=== PATIENT | female | born 1955 | race Caucasian/White ===

== ENCOUNTER → 2016-09-30 | Outpatient (CLI) | payer BC | END | disposition home or self-care (01) | LOC: C.PAPS 12:08 | PROVIDERS: ATTEND Obstetrics & Gynecology | DX: Z01.419 Encounter for gynecological examination (general) (routine) without abnormal findings (principal) ==

== ENCOUNTER → 2017-10-27 | Outpatient (CLI) | payer OTHER ==
--- NOTE | 2017-10-27 15:12 | MAMMOGRAPHY REPORT ---
BILATERAL DIGITAL DIAGNOSTIC MAMMOGRAM TOMOSYNTHESIS WITH CAD AND TARGETED LEFT ULTRASOUND: 10/27/2017 CLINICAL HISTORY: 62-year-old woman presents after her physician felt a lump in the 1:00 left breast on recent physical exam. Patient reports she is unable to feel the lump herself. No skin erythema, thickening or nipple discharge. No family history of breast cancer. Baseline examination. TECHNIQUE: Bilateral breast tomosynthesis in addition to standard 2D mammography was performed. Curre nt study was also evaluated with a Computer Aided Detection (CAD) system. COMPARISON: No prior exams were available for comparison. BREAST COMPOSITION: The tissue of both breasts is heterogeneously dense, which may obscure small mas ses. FINDINGS: A triangle or palpable marker was placed on the 12:00 to 1:00 anterior left breast, denotin g the palpable lump pointed out by the patient, identified by her provider. There is subtle global a symmetry of the breasts, with the left glandular tissue slightly denser when comparing to the right. Although this could represent the patient's baseline or be secondary to technique, further evaluatio n with ultrasound was performed throughout the left breast. No focal area of architectural distortio n, suspicious calcifications or obvious mass is identified bilaterally. Targeted ultrasound was performed throughout the left breast with particular attention to the 12:00 a nd 1:00 axes in the area of palpable concern pointed out by the patient. Throughout the left breast, sonographically normal tissue is seen without a suspicious solid or cystic mass. IMPRESSION: ACR-BI-RADS CATEGORY 3: PROBABLY BENIGN, TARGETED ULTRASOUND ACR-BI-RADS CATEGORY 3: PRO BABLY BENIGN 1. There is no suspicious mammographic or targeted sonographic abnormality in the 12:00 to 1:00 left breast, 3 cm from the nipple, in the area of palpable lump identified by the patient's provider. Th erefore, clinical follow-up is recommended, as biopsy of a clinically suspicious mass should not be p recluded by negative imaging. 2. There is subtle global asymmetry of the left breast comparing to the right, which may simply repr esent the patient's granular pattern, as this is her baseline mammogram, or could be technical. No s onographic abnormality identified. Nevertheless, a short interval follow-up bilateral diagnostic la osynthesis mammogram and possible repeat ultrasound is recommended to ensure stability in 6 months. The right breast should also be imaged for comparison purposes. These results and recommendations were discussed with the patient at the time of the exam. She tenta tively scheduled a follow-up appointment prior to leaving the department. Approximately 10% of breast cancers are not detected with mammography. A negative mammographic report should not delay biopsy if a clinically suggestive mass is present. Frida Selby M.D. ay/:10/27/2017 12:27:38 Billet Header: Tonie METCALF(R)(Chantal), [facility] letter sent: Follow Up Recommended 3 BI-RADS Code: ACR-BI-RADS Category 3: Probably Benign Ultrasound BI-RADS: ACR-BI-RADS Category 3: Pr obably Benign
== END | disposition home or self-care (01) ==
LOC: C.MAMM 10:34
PROVIDERS: ATTEND Obstetrics & Gynecology
DX: N63.20 Unspecified lump in the left breast, unspecified quadrant (principal)